=== PATIENT | female | born 1955 | race Caucasian/White ===

== ENCOUNTER 2019-04-15 12:31 | Emergency (ER) | payer MEDICAID ==
[~2019-04-15] VITALS: Ht 162.6 cm; Wt 85.0 kg
[2019-04-15 14:02] LABS: CLARITY URINE CLEAR (CLEAR); COLOR URINE YELLOW (YELLOW); KETONES URINE NEGATIVE (NEGATIVE); LEUKOCYTE ESTERASE URINE NEGATIVE (NEGATIVE); NITRITE URINE NEGATIVE (NEGATIVE); OCCULT BLOOD URINE NEGATIVE (NEGATIVE); PH URINE 7.5 (4.5-8.0); PROTEIN URINE NEGATIVE (NEGATIVE); SPECIFIC GRAVITY URINE 1.007 (1.005-1.030); UROBILINOGEN URINE 0.2 E.U./dL (0.2-1.0)
[2019-04-15] MEDS: KETOROLAC 30MG/ML VIAL IV STA (14:18)
[2019-04-15] MEDS: ONDANSETRON HCL 4MG/2ML INJ IV STA (14:19)
[2019-04-15 14:29] LABS: BASOPHILS % 1.2 % (0.0-2.0); EOSINOPHILS % 4.8 % (0.0-5.0); HEMATOCRIT. 41.5 % (36.0-48.0); HEMOGLOBIN. 14.4 g/dL (12.0-16.0); LYMPHOCYTES % 29.9 % (20.0-50.0); MEAN CORPUSCULAR HEMOGLOBIN 30.5 pg (28.0-32.0); MEAN PLATELET VOLUME 8.2 fl (7.4-10.4); MONOCYTES % 9.9 % (2.0-8.0); NEUTROPHILS % 54.2 % (40.0-76.0); PLATELET 206 x1000/uL (130-400); RED BLOOD CELL COUNT 4.72 mill/uL (4.2-5.4); RED CELL DISTRIBUTION WIDTH 13.6 % (11.6-14.6)
[2019-04-15 14:35] LABS: CHLORIDE 106 mEq/L (98-107)
[2019-04-15 14:38] LABS: PARTIAL THROMBOPLASTIN TIME 26.7 sec (23.4-31.0); PROTHROMBIN TIME 10.5 sec (9.6-11.0)
[2019-04-15] MEDS: SODIUM CHLORIDE 0.9% 1,000 ML IV ONE (14:40)
[2019-04-15] MEDS: POTASSIUM CHLORIDE 20MEQ TABLET SR PO ONE (15:30)
[2019-04-15] MEDS: MECLIZINE 25MG TABLET PO ONE (15:30)
[2019-04-15 16:02] VITALS: BP 141/73
== END 2019-04-15 16:09 | disposition home or self-care (01) ==
LOC: ER 12:31
DX: H81.10 Benign paroxysmal vertigo, unspecified ear (principal)
CPT/HCPCS: 36415; 70450; 71045; 80053; 81003; 83880; 84484; 85025; 85610; 85730; 93005; 96361; 96374; 96375; 99284; J1885; J2405; J7030; J8597; Z7610

== ENCOUNTER 2019-06-23 14:19 | Emergency (ER) | payer MEDICAID ==
[~2019-06-23] VITALS: Ht 162.6 cm; Wt 81.0 kg
[2019-06-23] MEDS ORDERED: ATOR20TA65 PO (14:38)
[2019-06-23] MEDS ORDERED: HYDR25TA PO (14:38)
[2019-06-23] MEDS ORDERED: CYCL10TA7 PO (14:38)
[2019-06-23] MEDS ORDERED: ASPI-1158 PO (14:38)
[2019-06-23] MEDS ORDERED: AMLO10TA80 PO (14:38)
[2019-06-23] MEDS ORDERED: BENA20TA10 PO (14:38)
[2019-06-23] MEDS ORDERED: IBUPROFEN 600MG TABLET PO ONE (15:00)
[2019-06-23 16:07] VITALS: BP 138/82
== END 2019-06-23 16:08 | disposition home or self-care (01) ==
LOC: ER 14:19
DX: M79.642 Pain in left hand (principal); M25.562 Pain in left knee; E78.00 Pure hypercholesterolemia, unspecified; I10 Essential (primary) hypertension; I25.2 Old myocardial infarction; Z79.82 Long term (current) use of aspirin; Z79.891 Long term (current) use of opiate analgesic; Z79.84 Long term (current) use of oral hypoglycemic drugs; Z79.899 Other long term (current) drug therapy; Z85.9 Personal history of malignant neoplasm, unspecified; W18.30XA Fall on same level, unspecified, initial encounter; Y93.89 Activity, other specified; Y92.89 Other specified places as the place of occurrence of the external cause; Y99.8 Other external cause status
CPT/HCPCS: 73130; 73562; 99283